=== PATIENT | female | born 1950 | race Two or more races ===

== ENCOUNTER 2023-07-17 09:20 | Emergency (ER) | payer BC, OTHER ==
[~2023-07-17] VITALS: Ht 162.6 cm; Wt 81.6 kg
[2023-07-17 10:50] LABS: PH,URINE 6.5 (5.0-8.0); URINE BILIRRUBIN Negative (NEGATIVE); URINE BLOOD Small; URINE COLOR Yellow; URINE GLUCOSE Negative (NEGATIVE); URINE LEUKOCYTE Large; URINE NITRATE Negative; URINE PROTEIN Negative (NEGATIVE); URINE UROBILINOGEN 0.2 E.U./dl
[2023-07-17 10:51] LABS: URINE BACTERIA 1590.1 uL (0.0-1933); URINE WBC 1422.5 uL (0.0-23.2)
[2023-07-17 11:05] LABS: URINE EPITHELIAL CELLS 1.3 uL (0.0-38.8); URINE RBC 1.4 uL (0.0-20.8)
[2023-07-17 11:06] LABS: URINE APPEARANCE CLEAR
[2023-07-17] MEDS ORDERED: BACTRIM DS TAB1 EACH PO (11:17)
== END 2023-07-17 11:21 | disposition home or self-care (01) ==
LOC: ER 09:21
PROVIDERS: Emergency Medicine
DX: N39.0 Urinary tract infection, site not specified (principal); Z88.0 Allergy status to penicillin